=== PATIENT | female | born 1965 | race Caucasian/White ===

== ENCOUNTER → 2018-02-11 | Outpatient (CLI) | payer BC ==
--- NOTE | 2018-02-12 08:44 | RAD ---
EXAM DESCRIPTION: Chest 2 views CLINICAL HISTORY: DYSPNEA ON EXERTION COMPARISON: None TECHNIQUE: PA and lateral views of the chest FINDINGS: Lungs are well aerated bilaterally. No consolidation nor pneumothorax nor pleural effusion in either lung. Cardiomediastinal contours are unremarkable in appearance. Thoracic bony structures grossly intact. IMPRESSION: No acute cardiopulmonary process. Electronically signed by: Ramakrishna Pino MD 02/12/2018 8:43 AM CDT
== END ==
LOC: LAB.O 12:24
PROVIDERS: ATTEND Nurse Practitioner Family
DX: Z00.00 Encounter for general adult medical examination without abnormal findings (principal); R06.09 Other forms of dyspnea; D64.9 Anemia, unspecified; D51.0 Vitamin B12 deficiency anemia due to intrinsic factor deficiency; D55.9 Anemia due to enzyme disorder, unspecified